=== PATIENT | female | born 1995 | race Caucasian/White ===

== ENCOUNTER 2024-01-02 14:49 | Emergency (ER) | payer OTHER, MEDICAID, SELFPAY ==
[2024-01-02 14:53] VITALS: BP 105/67; PULSE 55; RESP 16; TEMP 36.4; O2SAT 99; BMI 34.0
--- NOTE | 2024-01-02 15:56 | ED.EXTPRO ---
HPI - Extremity Problem <Jhoana Lopez PA-C - Last Filed: 01/02/24 17:07> General Chief complaint: Extremity Problem,Nontraumatic Stated complaint: Infection in L Leg, Bloodclot concerns Time Seen by Provider: 01/02/24 15:26 Source: patient Mode of arrival: Family Vehicle History of Present Illness HPI Narrative: Pt is a 28 year old female sent from [facility] with left lower leg swelling and redness for 1 week, for r/o DVT verses Cellulitis. The patient is blind, and unknown cause of redness, denies injury, trauma, fall. Possible insect or spider bite. No major medical issues, has not had cellulitis before. Has pain the area of erthema only, no calf or popliteal pain. Pain minor, currently at this time, pain increases with ambulation decreases with rest. No pain with palp of the calf, no pain with planter or dorsal flexion. Related Data Previous Rx's Medication Instructions Recorded sulfamethoxazole 800 1 tab PO BID #14 tabs 01/02/24 mg-trimethoprim 160 mg tablet Allergies Allergy/AdvReac Type Severity Reaction Status Date / Time Penicillins Allergy Mild Verified 01/02/24 08:55 Review of Systems <Jhoana Lopez PA-C - Last Filed: 01/02/24 17:07> Review of Systems Narrative: neg except as above Musculoskeletal Comments: pain and swelling lweft lower ext Patient History <Jhoana Lopez PA-C - Last Filed: 01/02/24 17:07> Social History Smoking Status: Never smoker Smoking Status: Never smoker Exam <Jhoana Lopez PA-C - Last Filed: 01/02/24 17:07> Initial Vital Signs Initial Vital Signs: Vital Signs Temperature 97.6 F 01/02/24 14:53 Pulse Rate 55 L 01/02/24 14:53 Respiratory Rate 16 01/02/24 14:53 Blood Pressure 105/67 01/02/24 14:53 Pulse Oximetry 99 01/02/24 14:53 Oxygen Delivery Method Room Air 01/02/24 14:53 Const Other: alert, oriented, NAD, Height weight proportioned. Legally blinf HENMT HENOR Other: pupils samia Skin Other: left lower cellulitis to the left lower ext swelling and s/s of cellulititis, to the mid calf, Neg homans, no pain with planter and dorsal flextion. no pain to the popliteal area. no cords, patient has no pain with passive and active ROM, pulses are present, caprefill normal. left calf 15.5 right calf 15.25 Neuro Other: Alert oriented X 4, NAD, CN grossly in tact Extrem Other: LLE swelling and s/s of cellulitis <John Lemus DO - Last Filed: 01/02/24 17:11> Initial Vital Signs Initial Vital Signs: Vital Signs Temperature 97.6 F 01/02/24 14:53 Pulse Rate 55 L 01/02/24 14:53 Respiratory Rate 16 01/02/24 14:53 Blood Pressure 105/67 01/02/24 14:53 Pulse Oximetry 99 01/02/24 14:53 Oxygen Delivery Method Room Air 01/02/24 14:53 Scores <Jhoana Lopez PA-C - Last Filed: 01/02/24 17:07> Wells' Criteria for DVT Citation:: Wells score ) Course <Jhoana Lopez PA-C - Last Filed: 01/02/24 17:07> Course Course Narrative: Pt seen and then taken to US for r/o DVT scan Orders Ordered: ED Orders 01/02/24 16:01 US periph venous low extrem lt Stat Vital Signs Vital signs: Vital Signs - 8 hr 01/02/24 14:53 Temperature 97.6 F Pulse Rate 55 L Respiratory Rate 16 Blood Pressure 105/67 Pulse Oximetry 99 Oxygen Delivery Method Room Air <John Lemus DO - Last Filed: 01/02/24 17:11> Orders Ordered: ED Orders 01/02/24 16:01 US periph venous low extrem lt Stat Vital Signs Vital signs: Vital Signs - 8 hr 01/02/24 14:53 Temperature 97.6 F Pulse Rate 55 L Respiratory Rate 16 Blood Pressure 105/67 Pulse Oximetry 99 Oxygen Delivery Method Room Air MDM - Extremity (Nontraumatic) <CYN Griggs Last Filed: 01/02/24 17:07> MDM Narrative Medical decision making narrative: 28 year female 1 week LLE swelling and erythema Sent from [facility] r/o DVT verses cellulitis Wells 0 Exam Cellulitis Pt states came from [place] for US wants US Low suspitino for DVT with exam and with Wells for DVT US ordered per request of patient Out patient Bactrim ordered patient PCN allergy and does not want Keflex Supportive therapy info given to the patient upon dc DIF Diag: DVT, Cellulitis, PVD, Possible infected insect/Spider bite [address] [address] Ultrasound Report Signed Patient: Mirlande Luna MR#: [id number] : 1995 Acct:[id number] Age/Sex: 28 / F Date of Service: 01/02/24 Loc: ED Accession Number: [id number] Procedure: US periph venous low extrem lt Ordering Provider: Jhoana Lopez PA-C PROCEDURE: US PERIPH VENOUS LOW EXTREM LT INDICATIONS: EDEMA TECHNIQUE: Real-time imaging, as well as color and pulse Doppler interrogation, were performed of the lower extremity deep veins from the inguinal ligament to the popliteal fossa, with documentation of the visualized calf veins. COMPARISON: None. FINDINGS: The common femoral, femoral, popliteal, and the visualized calf veins are normally compressible, and free of intraluminal thrombus. Color and pulse Doppler demonstrate normal phasic intraluminal flow. There is normal augmentation response to distal compression maneuver. IMPRESSION: No findings of lower extremity deep venous thrombosis. Dictated by: Olive Farley M.D. on 01/02/2024 at 16:52 Approved by: Olive Farley M.D. on 01/02/2024 at 16:53 Discharge Plan Departure Patient Disposition: Home Clinical Impression: Cellulitis of left lower extremity Cellulitis Qualifiers: Site of cellulitis: extremity Site of cellulitis of extremity: lower extremity Laterality: left Qualified Code(s): L03.116 - Cellulitis of left lower limb Instructions: DI for Cellulitis -- Adult Activity Restrictions/Additional Instructions: Please elevate the leg above your heart, please take the medication as prescribed, Tylenol or motrin for pain. Please follow up with your primary MD. Low concern for DVT. Prescriptions: New sulfamethoxazole-trimethoprim 800-160 mg tablet 1 tab PO BID Qty: 14 0RF Referrals: Laura Joiner PA-C [Primary Care Provider] - Stand Alone Forms: Patient Portal/API ED Sign-out <John Lemus DO - Last Filed: 01/02/24 17:11> Cosign ED Attending Cosignature Attestation: Dr Lemus Co-Sign Statement: I was available for consultation during this patient's emergency department visit. This chart is signed by myself for administrative purposes only. I did not have direct contact with this patient during this visit. They were seen independently by the APC.
--- NOTE | 2024-01-02 16:01 | DI.US.S_ITS ---
PROCEDURE: US PERIPH VENOUS LOW EXTREM LT INDICATIONS: EDEMA TECHNIQUE: Real-time imaging, as well as color and pulse Doppler interrogation, were performed of the lower extremity deep veins from the inguinal ligament to the popliteal fossa, with documentation of the visualized calf veins. COMPARISON: None. FINDINGS: The common femoral, femoral, popliteal, and the visualized calf veins are normally compressible, and free of intraluminal thrombus. Color and pulse Doppler demonstrate normal phasic intraluminal flow. There is normal augmentation response to distal compression maneuver. IMPRESSION: No findings of lower extremity deep venous thrombosis. Dictated by: Olive Farley M.D. on 01/02/2024 at 16:52 Approved by: Olive Farley M.D. on 01/02/2024 at 16:53
== END 2024-01-02 17:44 | disposition home or self-care (01) ==
PROVIDERS: Emergency Provider Physician Assistant; PCP Physician Assistant
DX: L03.116 Cellulitis of left lower limb (principal)
CPT/HCPCS: 93971; 99281; 99283

== ENCOUNTER → 2024-04-19 09:33 | Outpatient (CLI) | payer OTHER, SELFPAY ==
[2024-04-19 19:48] LABS: Add Manual Diff / Slide Review NO; Basophils Absolute Auto 100 /uL (0-100); Basophils Percent Auto 0.9 % (0-2); Eosinophils Absolute Auto 200 /uL (0-450); Eosinophils Percent Auto 3.1 % (2-4); Hematocrit 39.6 % (36-46); Hemoglobin 13.1 g/dL (12.0-16.0); Lymphocytes Absolute Auto 3800 /uL (1100-4500); Lymphocytes Percent Auto 49.9 % (25-40); Mean Corpuscular HGB Conc 33.2 % (30-36); Mean Corpuscular Hemoglobin 30.5 PG (26-34); Mean Corpuscular Volume 91.9 fL (80-100); Monocytes Absolute Auto 500 /uL (0-900); Monocytes Percent Auto 6.4 % (3-14); Neutrophils Absolute Auto 3100 /uL (1500-7000); Neutrophils Percent Auto 39.7 % (50-75); Platelet Count 489 X10^3/uL (150-400); Red Blood Cell Count 4.31 X10^6/uL (4.0-5.2); Red Cell Distribution Width 13.7 % (11.6-14.8); White Blood Cell Count 7.7 X10^3/uL (4.5-11.0)
[2024-04-19 19:58] LABS: Alanine Aminotransferase 24 IU/L (<35); Albumin Globulin Ratio 1.4 (1.0-2.8); Alkaline Phosphatase 64 U/L (38-126); Aspartate Aminotransferase 28 IU/L (14-36); BUN Creatinine Ratio 20.3 (6-22); Bilirubin Total 0.4 mg/dL (0.2-1.3); Blood Urea Nitrogen 13 mg/dL (7-17); Calcium 8.8 mg/dL (8.4-10.2); Carbon Dioxide 25 mmol/L (22-32); Chloride 106 mmol/L (98-107); Cholesterol 198 mg/dL (140-199); Estimated Glomerular Filt Rate > 60 mL/min (>60); Globulin 2.9 g/dL (1.7-4.1); Glucose 86 mg/dL (70-100); HDL Cholesterol 58 mg/dL (40-60); HEMOLYSIS 23 (0-50); LDL Cholesterol Calculated 113 mg/dL (<100); Potassium 4.3 mmol/L (3.4-5.1); Sodium 138 mmol/L (137-145); Total Protein 6.9 g/dL (6.3-8.2); Triglycerides 137 mg/dL (35-150)
[2024-04-19 20:29] LABS: TSH w/ Reflex to FT4 2.32 uIU/mL (0.47-4.68)
[2024-04-22 15:22] LABS: HIV 1 & 2 Ab/Ag 4th Gen Combo NEGATIVE (NEGATIVE); Hep C Virus Ab w/Reflex Quant NEGATIVE s/c (NEGATIVE)
== END ==
PROVIDERS: PCP Physician Assistant; Visit Provider Physician Assistant
DX: Z13.6 Encounter for screening for cardiovascular disorders (principal); Z11.4 Encounter for screening for human immunodeficiency virus [HIV]; Z11.59 Encounter for screening for other viral diseases; N92.6 Irregular menstruation, unspecified; H47.033 Optic nerve hypoplasia, bilateral
CPT/HCPCS: 80053; 80061; 84443; 85025; 86803; 87389

== ENCOUNTER → 2024-05-02 16:33 | Outpatient (CLI) | payer OTHER, SELFPAY | PROVIDERS: PCP Physician Assistant; Visit Provider Nurse Practitioner Adult Health | DX: Z01.419 Encounter for gynecological examination (general) (routine) without abnormal findings (principal); Z12.4 Encounter for screening for malignant neoplasm of cervix; Z11.3 Encounter for screening for infections with a predominantly sexual mode of transmission | CPT/HCPCS: 87491; 87591; 87661; 87798; 87801 ==

== ENCOUNTER → 2024-06-26 14:36 | Outpatient (CLI) | payer OTHER, SELFPAY ==
[2024-06-26 20:16] LABS: Add Manual Diff / Slide Review NO; Basophils Absolute Auto 100 /uL (0-100); Basophils Percent Auto 0.8 % (0-2); Eosinophils Absolute Auto 300 /uL (0-450); Hematocrit 39.7 % (36-46); Hemoglobin 13.3 g/dL (12.0-16.0); Lymphocytes Absolute Auto 3700 /uL (1100-4500); Lymphocytes Percent Auto 39.6 % (25-40); Mean Corpuscular HGB Conc 33.6 % (30-36); Mean Corpuscular Hemoglobin 30.4 PG (26-34); Mean Corpuscular Volume 90.7 fL (80-100); Monocytes Absolute Auto 600 /uL (0-900); Monocytes Percent Auto 6.4 % (3-14); Neutrophils Absolute Auto 4700 /uL (1500-7000); Neutrophils Percent Auto 50.2 % (50-75); Platelet Count 462 X10^3/uL (150-400); Red Blood Cell Count 4.38 X10^6/uL (4.0-5.2); Red Cell Distribution Width 13.6 % (11.6-14.8); White Blood Cell Count 9.3 X10^3/uL (4.5-11.0)
[2024-06-26 20:38] LABS: Hemoglobin A1C% w Est Avg Glu 4.8 % (4.0-6.0)
[2024-06-26 20:39] LABS: Cholesterol 223 mg/dL (140-199); HDL Cholesterol 71 mg/dL (40-60); LDL Cholesterol Calculated 118 mg/dL (<100); Triglycerides 169 mg/dL (35-150)
[2024-06-26 20:59] LABS: Prolactin 10.5 ng/mL (3.0-18.6)
[2024-06-26 21:05] LABS: TSH w/ Reflex to FT4 0.95 uIU/mL (0.47-4.68)
== END ==
PROVIDERS: PCP Physician Assistant; Visit Provider Nurse Practitioner Adult Health
DX: N92.6 Irregular menstruation, unspecified (principal); L68.0 Hirsutism
CPT/HCPCS: 80061; 82627; 83036; 84146; 84402; 84403; 84443; 85025